=== PATIENT | female | born 1945 | race Caucasian/White ===

== ENCOUNTER 2016-07-08 14:47 | Emergency (ER) | payer MEDICARE, BC, OTHER ==
[~2016-07-08] VITALS: Ht 180.3 cm; Wt 97.3 kg
[~2016-07-08 14:47] MED LIST: ANTIBIOTIC; CIPRO 250MG TA250 MG PO; LEXAPRO5 MG PO; NAMENDA 10MG TA10 MG PO; NEXIUM 40MG40 MG PO; NORCO 325 MG-7.1 TAB PO; PHENTERMINE15 MG PO
[2016-07-08 14:49] VITALS: BP 154/100; TEMP 97.8
[2016-07-08 15:44] LABS: BASO % 0.3 % (0.0-2.0); EOS % 0.5 % (0-4.0); GRAN # 4.6 (1.4-6.5); GRAN % 75.8 % (42.2-75.2); HEMATOCRIT 39.1 % (37.0-47.0); LYMPH # 0.8 (1.2-3.4); LYMPH % 13.2 % (20.0-51.0); MEAN CELL VOLUME 88 fl (80.0-100.0); MEAN CORPUSCULAR HEMOGLOBIN 29 pg (27.0-31.0); MEAN CORPUSCULAR HGB CONC 33 g/dl (33.0-37.0); MEAN PLATELET VOLUME 10.2 fl (7.4-10.4); MONO # 0.6 (0.1-0.6); MONO % 9.9 % (1.7-9.3); PLATELET COUNT 185 K/mm3 (130-400); RED BLOOD COUNT 4.47 M/mm3 (4.10-5.30); REDCELL DISTRIBUTION WIDTH-CV 12.8 % (11.5-14.5); WHITE BLOOD COUNT 6.1 K/mm3 (4.8-10.8)
[2016-07-08 15:53] LABS: INR 1.3 (0.8-3.0); PROTHROMBIN TIME 14.7 SECONDS (9.7-12.8)
[2016-07-08 15:56] LABS: PARTIAL THROMBOPLASTIN TIME 31.5 SECONDS (26.0-37.0)
[2016-07-08] MEDS ORDERED: RAZADYNE 4MG (FO4 MG PO (16:01)
[2016-07-08] MEDS ORDERED: AVELOX 400MG T400 MG PO (16:02)
[2016-07-08] MEDS ORDERED: TYLENOL W/COD1 UDTAB PO (16:02)
[2016-07-08 16:10] LABS: ADJUSTED CALCIUM 9.5 mg/dL (8.4-10.2); ALANINE AMINOTRANSFERASE 23 U/L (9-52); ALBUMIN 3.9 gm/dL (3.5-5.0); ALKALINE PHOSPHATASE 87 U/L (50-136); ANION GAP 12 mmol/L (7-16); BILIRUBIN,TOTAL 0.8 mg/dL (0.0-1.0); BLOOD UREA NITROGEN 10 mg/dL (7-17); CALCIUM 9.4 mg/dL (8.4-10.2); CARBON DIOXIDE 27 mmol/L (22-30); CHLORIDE 101 mmol/L (98-107); CREATININE, serum 0.93 mg/dL (0.52-1.25); GLUCOSE 92 mg/dL (74-106); POTASSIUM 3.8 mmol/L (3.4-5.0); SODIUM 140 mmol/L (137-145); TOTAL PROTEIN 7.2 gm/dL (6.4-8.2)
[2016-07-08 16:20] LABS: B-TYPE NATRIURETIC PEPTIDE 173 pg/mL (0-125); TROPONIN-I < 0.012 ng/mL (0.000-0.034)
[2016-07-08 16:29] LABS: C-REACTIVE PROTEIN 18.7 mg/dL (0.0-0.9)
[2016-07-08 17:43] VITALS: PULSE 84
== END 2016-07-08 17:43 | disposition home or self-care (01) ==
LOC: COL.ER 14:47
PROVIDERS: Emergency Medicine
DX: J18.9 Pneumonia, unspecified organism (principal); F03.90 Unspecified dementia, unspecified severity, without behavioral disturbance, psychotic disturbance, mood disturbance, and anxiety

== ENCOUNTER → 2016-08-21 | Outpatient (CLI) | payer MEDICARE, BC, OTHER ==
[~2016-08-21] MED LIST changes: +AVELOX 400MG T400 MG PO; +RAZADYNE 4MG (FO4 MG PO; +TYLENOL W/COD1 UDTAB PO
== END ==
LOC: MC.RAD 10:25
DX: Z12.31 Encounter for screening mammogram for malignant neoplasm of breast (principal)

== ENCOUNTER → 2017-02-02 | Outpatient (CLI) | payer MEDICARE, BC, OTHER ==
[~2017-02-02] MED LIST changes: +LEXAPRO20 MG; -LEXAPRO5 MG PO; +PRIL40 PO; +REGLAN 10MG10 MG/TAB PO
== END ==
LOC: COL.RAD 14:49
DX: S39.91XA Unspecified injury of abdomen, initial encounter (principal); K82.8 Other specified diseases of gallbladder; K76.9 Liver disease, unspecified; K44.9 Diaphragmatic hernia without obstruction or gangrene; K63.89 Other specified diseases of intestine; R59.0 Localized enlarged lymph nodes; V89.2XXA Person injured in unspecified motor-vehicle accident, traffic, initial encounter
CPT/HCPCS: Q9967

== ENCOUNTER 2017-02-04 08:51 | Day surgery (SDC) | payer MEDICARE, BC, OTHER ==
[~2017-02-04] VITALS: Ht 180.3 cm; Wt 87.0 kg
[2017-02-04] VITALS (10 sets, daily range): BP systolic 94–133; BP diastolic 52–77; PULSE 72–95; TEMP 97.3–98.1
[~2017-02-04 08:51] MED LIST changes: -PRIL40 PO; -REGLAN 10MG10 MG/TAB PO
[2017-02-04] MEDS ORDERED: REGLAN 10MG10 MG/TAB PO (09:28)
[2017-02-04] MEDS ORDERED: PRIL40 PO (09:28)
== END 2017-02-04 15:35 | disposition home or self-care (01) ==
LOC: SDCO 08:51
DX: K31.9 Disease of stomach and duodenum, unspecified (principal); R17 Unspecified jaundice; R94.5 Abnormal results of liver function studies; Z90.710 Acquired absence of both cervix and uterus; Z96.652 Presence of left artificial knee joint; K21.9 Gastro-esophageal reflux disease without esophagitis; F03.90 Unspecified dementia, unspecified severity, without behavioral disturbance, psychotic disturbance, mood disturbance, and anxiety
CPT/HCPCS: OP; C1769; J1610; J2704; J7030; Q9967

== ENCOUNTER 2017-02-08 09:35 | Emergency (ER) | payer MEDICARE, BC, OTHER ==
[~2017-02-08] VITALS: Ht 180.3 cm; Wt 86.4 kg
[~2017-02-08 09:35] MED LIST changes: +PRIL40 PO; +REGLAN 10MG10 MG/TAB PO
[2017-02-08 09:44] VITALS: TEMP 97.1
[2017-02-08 10:09] LABS: BASO % 0.7 % (0.0-2.0); EOS # 0.1 (0.0-0.7); EOS % 2.1 % (0-4.0); GRAN # 2.8 (1.4-6.5); GRAN % 63.9 % (42.2-75.2); HEMATOCRIT 39.9 % (37.0-47.0); LYMPH # 0.9 (1.2-3.4); LYMPH % 20.6 % (20.0-51.0); MEAN CELL VOLUME 84 fl (80.0-100.0); MEAN CORPUSCULAR HEMOGLOBIN 29 pg (27.0-31.0); MEAN CORPUSCULAR HGB CONC 35 g/dl (33.0-37.0); MEAN PLATELET VOLUME 10.2 fl (7.4-10.4); MONO # 0.5 (0.1-0.6); MONO % 12.2 % (1.7-9.3); PLATELET COUNT 113 K/mm3 (130-400); RED BLOOD COUNT 4.78 M/mm3 (4.10-5.30); REDCELL DISTRIBUTION WIDTH-CV 19.5 % (11.5-14.5); WHITE BLOOD COUNT 4.3 K/mm3 (4.8-10.8)
[2017-02-08 10:24] LABS: INR 1.8 (0.8-3.0); PROTHROMBIN TIME 20.7 SECONDS (9.7-12.8)
[2017-02-08 10:26] LABS: ADJUSTED CALCIUM 9.7 mg/dL (8.4-10.2); ALANINE AMINOTRANSFERASE 393 U/L (9-52); ALKALINE PHOSPHATASE 231 U/L (50-136); ANION GAP 10 mmol/L (7-16); BLOOD UREA NITROGEN 7 mg/dL (7-17); C-REACTIVE PROTEIN 2.6 mg/dL (0.0-0.9); CALCIUM 8.9 mg/dL (8.4-10.2); CARBON DIOXIDE 24 mmol/L (22-30); CHLORIDE 101 mmol/L (98-107); CREATININE, serum 0.95 mg/dL (0.52-1.25); GLUCOSE 87 mg/dL (74-106); LIPASE 139 U/L (23-300); MAGNESIUM 1.9 mg/dL (1.6-2.3); PHOSPHOROUS 3.9 mg/dL (2.5-4.5); POTASSIUM 3.2 mmol/L (3.4-5.0); SODIUM 135 mmol/L (137-145); TOTAL PROTEIN 7.7 gm/dL (6.4-8.2)
[2017-02-08 10:27] LABS: PARTIAL THROMBOPLASTIN TIME 47.1 SECONDS (26.0-37.0)
[2017-02-08 10:35] LABS: B-TYPE NATRIURETIC PEPTIDE 88 pg/mL (0-125)
[2017-02-08 10:36] LABS: TROPONIN-I < 0.012 ng/mL (0.000-0.034)
[2017-02-08 11:02] LABS: BILIRUBIN,DIRECT 18.7 mg/dL (0.0-0.4); BILIRUBIN,TOTAL 21.3 mg/dL (0.0-1.0)
[2017-02-08 12:58] LABS: PH 5 (5-8); SQUAMOUS EPITHELIAL None Seen /hpf; URINE APPEARANCE Cloudy; URINE BACTERIA Moderate /hpf; URINE BILIRUBIN Positive (NEGATIVE); URINE BLOOD Negative (NEGATIVE); URINE COLOR Amber; URINE GLUCOSE Negative (NEGATIVE); URINE KETONE Negative (NEGATIVE); URINE RBC 0-2 /hpf; URINE UROBILINOGEN >=4.0 mg/dL (NEGATIVE)
[2017-02-08 13:00] LABS: URINE WBC 20-50 /hpf
[2017-02-08 16:00] VITALS: BP 106/57; PULSE 87
[2017-02-08] MEDS ORDERED: FLAGYL500 MG PO (16:06)
[2017-02-08] MEDS ORDERED: LEVAQUIN 5500 MG/TA1 PO (16:06)
== END 2017-02-08 16:26 | disposition home or self-care (01) ==
LOC: COL.ER 09:35
PROVIDERS: Emergency Medicine
DX: N39.0 Urinary tract infection, site not specified (principal); R17 Unspecified jaundice; G30.9 Alzheimer's disease, unspecified
CPT/HCPCS: J7030; Q9967

== ENCOUNTER → 2017-02-25 | Outpatient (REF) ==
[~2017-02-25] MED LIST changes: +FLAGYL500 MG PO; +LEVAQUIN 5500 MG/TA1 PO
[2017-02-25 05:10] LABS: ADJUSTED CALCIUM 9.3 mg/dL (8.4-10.2); ALBUMIN 2.4 gm/dL (3.5-5.0); CREATININE, serum 0.76 mg/dL (0.52-1.25); POTASSIUM 4.8 mmol/L (3.4-5.0); TOTAL PROTEIN 5.7 gm/dL (6.4-8.2)
== END ==
LOC: ZCOL.LAB 04:57
PROVIDERS: Family Medicine
DX: K74.60 Unspecified cirrhosis of liver (principal)